=== PATIENT | female | born 1975 | race Caucasian/White ===

== ENCOUNTER 2018-05-18 15:06 | Emergency (ER) | payer OTHER ==
[2018-05-18 16:02] LABS: Absolute Lymphocytes (CBC) 1.2 K/uL (0.7-4.9); Absolute Monocytes 0.6 K/uL (0.1-1.3); Absolute Neutrophil 2.6 K/uL (1.8-8.0); Basophils % 0.2 % (0-1.3); Eosinophils % 0.1 % (0-4.4); Hematocrit 44.5 % (36.0-45.0); Lymphocytes % 27.1 % (15.3-44.8); MCV 90.8 fL (80-100); MPV 8.1 fL (7.6-11.3); Monocytes % 13.6 % (3.3-12.3)
[2018-05-18 16:09] LABS: Protime INR 1.03
[2018-05-18] MEDS ORDERED: HALOPERIDOL LACT 5 MG/ML INJ ONE (16:37)
[2018-05-18] MEDS ORDERED: DIPHENHYDRAMINE 50 MG/ML VIAL ONE (16:37)
[2018-05-18 16:41] LABS: ALT/SGPT 31 U/L (12-78); AST/SGOT 23 U/L (15-37); Albumin 3.5 g/dL (3.4-5.0); Alkaline Phosphatase 87 U/L (45-117); BUN Blood Urea Nitrogen 6 mg/dL (7-18); Bicarbonate 27 mmol/L (21-32); Bilirubin Direct 0.2 mg/dL (0-0.2); Bilirubin Total 0.7 mg/dL (0.2-1.0); Glucose Level 97 mg/dL (74-106); Potassium 3.8 mmol/L (3.5-5.1); Protein, Total 7.5 g/dL (6.4-8.2); Sodium Level 144 mmol/L (136-145)
[2018-05-18 16:43] LABS: Alcohol Serum/Plasma < 3 mg/dL (<3)
[2018-05-18 17:06] LABS: Barbiturates NEGATIVE (NEGATIVE); Benzodiazepines NEGATIVE (NEGATIVE); Cocaine NEGATIVE (NEGATIVE); METHAMPHETAM NEGATIVE (NEGATIVE); Methadone NEGATIVE (NEGATIVE); Opiates NEGATIVE (NEGATIVE); Phencyclidine NEGATIVE (NEGATIVE); THC Cannibis NEGATIVE (NEGATIVE)
--- NOTE | 2018-05-18 17:49 | EDPHYS ---
Physician Documentation [facility] Name: Vickie Diop Age: 43 yrs Sex: Female : 1975 Arrival Date: 05/18/2018 Time: 15:09 Bed 5 Private MD: ED Physician Sly Suarez HPI: 05/18 16:54 This 43 yrs old Female presents to ER via Wheelchair with complaints of Psych jr8 Problem. 16:54 The patient presents to the emergency department with psychosis, has experienced jr8 auditory hallucinations, has delusions. Onset: The symptoms/episode began/occurred gradually, 1 month(s) ago. Associated signs and symptoms: The patient has no apparent associated signs or symptoms. Severity of symptoms: At their worst the symptoms were moderate in the emergency department the symptoms are unchanged. The patient has experienced similar episodes in the past, a few times. The patient has not recently seen a physician. Father of patient stated that patient is from [place]. Had been fine for quite some time while she had been on her psychiatric medications. Stated that she got off of them about a month ago because she thinks she does not need them. Since then has had auditory hallucinations and delusions. Stated that she flew down to [place] where they use to live and made her way down to [place] where she was arrested for recklessly driving a vehicle. Had been in snf for approximately 3 weeks until father had [place] police put out an APB on her to because she was missing and had not heard from her. Brought her to hospital here to see if we can stabilize her and get her treatment before taking her back home . Historical: - Allergies: 16:21 No Known Allergies; sv - Home Meds: 16:21 [place] Carbonate Oral [Active]; envega [Active]; sv - PMHx: 16:21 psychiatric hx; sv - PSHx: 16:21 None; sv - Immunization history:: Adult Immunizations unknown. - Social history:: Smoking status: unknown. - Ebola Screening: : Unable to complete screening because patient does not understand. ROS: 16:54 Eyes: Negative for injury, pain, redness, and discharge, ENT: Negative for injury, jr8 pain, and discharge, Neck: Negative for injury, pain, and swelling, Cardiovascular: Negative for chest pain, palpitations, and edema, Respiratory: Negative for shortness of breath, cough, wheezing, and pleuritic chest pain, Abdomen/GI: Negative for abdominal pain, nausea, vomiting, diarrhea, and constipation, Back: Negative for injury and pain, MS/Extremity: Negative for injury and deformity, Skin: Negative for injury, rash, and discoloration, Neuro: Negative for headache, weakness, numbness, tingling, and seizure. 16:54 Psych: Positive for auditory hallucinations. Exam: 16:54 Head/Face: Normocephalic, atraumatic. Eyes: Pupils equal round and reactive to light, jr8 extra-ocular motions intact. Lids and lashes normal. Conjunctiva and sclera are non-icteric and not injected. Cornea within normal limits. Periorbital areas with no swelling, redness, or edema. ENT: Nares patent. No nasal discharge, no septal abnormalities noted. Tympanic membranes are normal and external auditory canals are clear. Oropharynx with no redness, swelling, or masses, exudates, or evidence of obstruction, uvula midline. Mucous membranes moist. Neck: Trachea midline, no thyromegaly or masses palpated, and no cervical lymphadenopathy. Supple, full range of motion without nuchal rigidity, or vertebral point tenderness. No Meningismus. Cardiovascular: Regular rate and rhythm with a normal S1 and S2. No gallops, murmurs, or rubs. Normal PMI, no JVD. No pulse deficits. Respiratory: Lungs have equal breath sounds bilaterally, clear to auscultation and percussion. No rales, rhonchi or wheezes noted. No increased work of breathing, no retractions or nasal flaring. Abdomen/GI: Soft, non-tender, with normal bowel sounds. No distension or tympany. No guarding or rebound. No evidence of tenderness throughout. Back: No spinal tenderness. No costovertebral tenderness. Full range of motion. Skin: Warm, dry with normal turgor. Normal color with no rashes, no lesions, and no evidence of cellulitis. MS/ Extremity: Pulses equal, no cyanosis. Neurovascular intact. Full, normal range of motion. Neuro: Awake and alert, GCS 15, oriented to person, place, time, and situation. Cranial nerves II-XII grossly intact. Motor strength 5/5 in all extremities. Sensory grossly intact. Cerebellar exam normal. Normal gait. 16:54 Psych: Behavior/mood is delirious, Affect is animated, Oriented to person, place, Not oriented to time, Patient has no thoughts/intents to harm self or others. Judgement / Insight is impaired. Recent memory is impaired. Remote memory is impaired. Delusions/hallucinations are present and described as Keeps talking about a non existing that she has and asking him questions . Vital Signs: 15:30 BP 125 / 89; Pulse 61; Resp 18; Temp 98.5; Pulse Ox 99% ; Pain 0/10; sv 15:45 Weight 53.07 kg (R); Height 5 ft. 5 in. (165.10 cm) (R); sg 16:33 BP 121 / 89; Pulse 86; Resp 16; Pulse Ox 99% ; sv 15:45 Body Mass Index 19.47 (53.07 kg, 165.10 cm) sg MDM: 15:33 Patient medically screened. jr8 17:48 Data reviewed: vital signs, nurses notes, lab test result(s). Data interpreted: Pulse jr8 oximetry: on room air is 99 %. Interpretation: normal. Counseling: I had a detailed discussion with the patient and/or guardian regarding: the historical points, exam findings, and any diagnostic results supporting the discharge/admit diagnosis, lab results, the need to transfer to another facility, [facility] does not immediately have the required specialist. 05/18 15:33 Order name: Acetaminophen; Complete Time: 17:00 05/18 15:33 Order name: Basic Metabolic Panel; Complete Time: 17:00 05/18 15:33 Order name: CBC with Diff; Complete Time: 16:27 05/18 15:33 Order name: ETOH Level; Complete Time: 17:00 05/18 15:33 Order name: Hepatic Function; Complete Time: 17:00 05/18 15:33 Order name: PT-INR; Complete Time: 16:27 05/18 15:33 Order name: Ptt, Activated; Complete Time: 16:27 05/18 15:33 Order name: Salicylate [facility] 05/18 15:33 Order name: Urine Drug Screen; Complete Time: 17:07 05/18 15:55 Order name: LAB Add On sv 05/18 16:08 Order name: [place] EDMS 05/18 17:19 Order name: Urine Dipstick--Ancillary (enter results) [facility] 05/18 17:19 Order name: Urine --Ancillary (enter results) [facility] 05/18 15:33 Order name: EKG; Complete Time: 15:34 [facility] 05/18 15:33 Order name: EKG - Nurse/Tech; Complete Time: 16:14 [facility] 05/18 15:33 Order name: IV Saline Lock; Complete Time: 15:53 [facility] 05/18 15:33 Order name: Labs collected and sent; Complete Time: 15:53 [facility] 05/18 15:33 Order name: Urine Dipstick-Ancillary (obtain specimen); Complete Time: 16:52 [facility] 05/18 17:52 Order name: Diet Regular; Complete Time: 17:53 sg Administered Medications: 16:48 Drug: Benadryl 50 mg Route: IVP; Site: left forearm; sv 16:50 Drug: HALdol 5 mg Route: IVP; Site: left forearm; sv Disposition: 18:23 Co-signature as Attending Physician, Sly Suarez MD I agree with the assessment and kdr plan of care. Disposition: 05/18/18 17:49 Transfer ordered to Psych Facility. Diagnosis is Psychotic disorder with hallucinations due to known physiological condition. - Reason for transfer: Higher level of care. - Accepting physician is Dr. Mack. - Condition is Fair. - Problem is new. - Symptoms are unchanged. Signatures: Dispatcher [employer] Miguelina Quezada RN RN sv Rittger, Kevin, MD MD kdr Solis, Maria ms Roszak, Josh, PA PA jr8 Corrections: (The following items were deleted from the chart) 18:24 17:49 05/18/2018 17:49 Transfer ordered to Psych Facility. Diagnosis is Psychotic kdr disorder with hallucinations due to known physiological condition. Reason for transfer: Higher level of care. Accepting physician is Psych. Condition is Fair. Problem is new. Symptoms are unchanged. jr8 19:06 18:24 05/18/2018 17:49 Transfer ordered to Psych Facility. Diagnosis is Psychotic ms disorder with hallucinations due to known physiological condition. Reason for transfer: Higher level of care. Accepting physician is Dr. Mack. Condition is Fair. Problem is new. Symptoms are unchanged. kdr
--- NOTE | 2018-05-18 17:49 | ER ---
Nurse's Notes [facility] Name: Vickie Diop Age: 43 yrs Sex: Female : 1975 Arrival Date: 05/18/2018 Time: 15:09 Bed 5 Private MD: Diagnosis: Psychotic disorder with hallucinations due to known physiological condition Presentation: 05/18 15:16 Presenting complaint: Father states: pt is from [place], [place], she decided about 4 weeks sv ago to take an airplane to [place], [place], then rented a car and started driving down here to [place], [place]. Pt was stopped by police for wreckless driving and placed in [facility]. Pt has been in [facility] for about 3 weeks and has not been taking her psychotic medications. Pt's father came from [place] to get her out of [facility] and has "been off her rocker" since Wednesday. Father wants her to get some help. Pt states she hears 1 voice in her head that is her , Andre. Pt does not have a . Pt states that she sees him in her head sometimes. 15:16 Method Of Arrival: Wheelchair sv 15:16 Acuity: MARCO A 2 sv 15:17 Transition of care: patient was not received from another setting of care. Onset of sv symptoms is unknown. Risk Assessment: Do you want to hurt yourself or someone else? Patient reports no desire to harm self or others. Initial Sepsis Screen: Does the patient meet any 2 criteria? No. Patient's initial sepsis screen is negative. Does the patient have a suspected source of infection? No. Patient's initial sepsis screen is negative. Care prior to arrival: None. Triage Assessment: 15:20 General: Appears in no apparent distress. comfortable, slender, Behavior is sv cooperative, fast speech, speaking to Andre who is an auditory hallucination.. Pain: Denies pain. EENT: No signs and/or symptoms were reported regarding the EENT system. Neuro: Level of Consciousness is awake, alert, obeys commands, Oriented to person, Moves all extremities. Gait is steady, Speech is normal. Cardiovascular: Patient's skin is warm and dry. Respiratory: Respiratory effort is even, unlabored, Respiratory pattern is regular, symmetrical. GI: No signs and/or symptoms were reported involving the gastrointestinal system. : No signs and/or symptoms were reported regarding the genitourinary system. Derm: Skin is pink, warm \\T\\ dry. Musculoskeletal: No signs and/or symptoms reported regarding the musculoskeletal system. Historical: - Allergies: 16:21 No Known Allergies; sv - Home Meds: 16:21 [place] Carbonate Oral [Active]; envega [Active]; sv - PMHx: 16:21 psychiatric hx; sv - PSHx: 16:21 None; sv - Immunization history:: Adult Immunizations unknown. - Social history:: Smoking status: unknown. - Ebola Screening: : Unable to complete screening because patient does not understand. Screenin:30 Abuse screen: Denies threats or abuse. Denies injuries from another. Nutritional sv screening: No deficits noted. Tuberculosis screening: No symptoms or risk factors identified. Fall Risk No fall in past 12 months (0 pts). No secondary diagnosis (0 pts). IV access (20 points). Ambulatory Aid- None/Bed Rest/Nurse Assist (0 pts). Gait- Normal/Bed Rest/Wheelchair (0 pts) Mental Status- Overestimates/Forgets Limitations (15 pts.). Total Seg[place]ia Fall Scale indicates Low Risk Score (25-44 pts). Fall prevention measures have been instituted. Side Rails Up X 2 Placed close to Nursing Station 1:1 attendant Assigned to Pt. Frequent Obs/Assesments occuring As available Patient and Family Educated on Fall Prevention Program and strategies. Assessment: 15:45 Reassessment: Pt is having flight of ideas, rambling and excited. Pt continues to speak sv to Andre. Pt has inappropriate replies to questions from staff. 16:35 Reassessment: Patient appears in no apparent distress at this time. No changes from sv previously documented assessment. Patient and/or family updated on plan of care and expected duration. Pain level reassessed. 17:43 Reassessment: Patient appears in no apparent distress at this time. No changes from sg previously documented assessment. pt laying on ER stretcher, eyes closed, resp even and unlabored, srx2, the bed is in low and locked position, will continue to monitor. 18:00 Reassessment: report given to Juliocesar OLU with [facility], awaiting administrative approval at this time. 18:09 Reassessment: Reassessment: report given to Tristen LOU with [facility], awaiting sg administrative approval at this time. 18:13 Reassessment: report given to Sara LOU with [facility], awaiting administrative sg approval at this time. Reassessment: to give report to for pt report, awaiting administrative approval. 18:22 Reassessment: Administrative approval received from [facility], awaiting sg transport at this time. Psych: 15:20 Subjective: Patient's mood is elevated, Delusions are denied, Hallucinations are sv auditory, visual. Objective: Patient is cooperative, guarded, using poor eye contact, Speech is loud, rapid, Affect is flat, inappropriate. Interventions: Patient placed in hospital gown. Patient reassessed during use of restraints. Patient is physically safe. Patient's cardiac status is stable. Patient's respirations are even and unlabored. Patient has good circulation in all extremities as indicated by capillary refill < 3 seconds. Patient's ROM assessed and is intact. Patient nutrition and hydration needs will continue to be monitored and addressed. Patient hygiene and elimination needs met. Patient assessed for signs of distress. Patient remains reasonably comfortable at this time. Assisted patient in de-escalation of behavior by removing stimuli causing behavior where possible. Commitment: Patient will be a voluntary commitment. 15:20 Safety Checks: Personal items have been removed. Door is open. Visitors are present. sv 16:34 Suicide Risk Assessment: Sad Person Scale: Sex of patient: Female: Score 0 points. Age sv of patient: Score 0 point if patient falls outside of specified age parameters. Depression: Score 0 point if signs of depression are not present. Previous Attempt: Score 1 point if patient has previously attempted suicide. Substance Abuse: Score 0 point if patient does not abuse alcohol or drugs. Rational Thinking: Score 1 point if patient is lacking rational thinking. Social Support: Score 0 if social support is present/available. Organized Plan: Score 0 if patient did not have an organized plan in place. Relationship: Score 1 point if patient is , , , or for a single male Chronic Sickness: Score 1 point if patient has illness, chronic, debilitating, or severe. TOTAL POINTS: If total points are 3-4, proposed clinical action is close follow-up/consider hospitalization. Pt denies substance abuse. Vital Signs: 15:30 BP 125 / 89; Pulse 61; Resp 18; Temp 98.5; Pulse Ox 99% ; Pain 0/10; sv 15:45 Weight 53.07 kg (R); Height 5 ft. 5 in. (165.10 cm) (R); sg 16:33 BP 121 / 89; Pulse 86; Resp 16; Pulse Ox 99% ; sv 15:45 Body Mass Index 19.47 (53.07 kg, 165.10 cm) ED Course: 15:09 Patient arrived in ED. rg4 15:20 Patient has correct armband on for positive identification. Placed in gown. Bed in low sv position. Side rails up X2. Pulse ox on. NIBP on. Head of bed elevated. 15:30 Arm band placed on right wrist. sv 15:33 Tristen Sinclair PA is PHCP. jr8 15:33 Sly Suarez MD is Attending Physician. jr8 15:33 Patients father Zachariah Diop left his phone number [phone] for us to call and keep eb him updated with plan of care once medically cleared. 15:35 Safety Checks: Personal items have been removed. The door is open or patient has been sv placed in a hallway bed/chair. A family member and/or friend is present and encouraged to stay. Sitter present at this time. 15:45 Initial lab(s) drawn, by me, sent to lab. Inserted saline lock: 22 gauge in left sv forearm, using aseptic technique. ,using aseptic technique. diffusics Blood collected. Flushed left forearm with 5 ml normal saline. 15:50 Safety Checks: Personal items have been removed. The door is open or patient has been sv placed in a hallway bed/chair. There are no family/friend visitors at this time Sitter present at this time. 15:52 Miguelina Dowd, DASHA is Primary Nurse. sv 16:05 Safety Checks: Personal items have been removed. The door is open or patient has been sv placed in a hallway bed/chair. There are no family/friend visitors at this time Sitter present at this time. 16:20 Triage completed. sv 16:20 Safety Checks: Personal items have been removed. The door is open or patient has been sv placed in a hallway bed/chair. There are no family/friend visitors at this time Sitter present at this time. 16:33 EKG done, by school bus technician. reviewed by Tristen OCHOA. dt2 16:35 Safety Checks: Personal items have been removed. The door is open or patient has been sv placed in a hallway bed/chair. There are no family/friend visitors at this time Sitter present at this time. 16:36 LAB Add On Sent. sv 16:50 Safety Checks: Personal items have been removed. The door is open or patient has been sv placed in a hallway bed/chair. There are no family/friend visitors at this time Sitter present at this time. 16:51 Urine collected: straight cath specimen, cloudy, by [employer]. dh3 17:04 Report given to Luis LOU. sv 17:06 Primary Nurse role handed off by Miguelina Dowd RN 17:17 called and spoke with Karen at [facility] to initiate transfer, She asked eb that i fax over clinical's but that at this time they have no beds available for our patient. 17:26 faxed patient records to the following facilities intake department in the attempt to eb find placement : [facility], [facility], [facility], [facility], [facility], [facility], [facility], [facility], [facility], [facility], [facility], [facility], and [facility] . 17:43 Luis Hendrickson, RN is Primary Nurse. sg 17:50 Resting quietly. transfer approval from receiving facility. sg 17:53 [facility] called to do nurse to nurse on a potential transfer. eb 18:07 Tristen from [facility] contacted for [id number]. mb4 18:08 Sara from [facility] contacted for [id number]. mb4 18:18 Beatriz from [facility] contacted for [id number]. mb4 18:20 Dr. Suarez called [phone] Mack from [facility] for consultation for patient transfer. Administered Medications: 16:48 Drug: Benadryl 50 mg Route: IVP; Site: left forearm; sv 16:50 Drug: HALdol 5 mg Route: IVP; Site: left forearm; sv Outcome: 17:49 ER care complete, transfer ordered by MD. smith 19:06 Patient left the ED. ms Signatures: Miguelina Dowd RN RN Luis Hendrickson RN RN Mimi Mark ms Carolyn, DASHA Jacobo RN Tristen Sinclair PA PA jr8 Garcia, Rubi 4 Tricia Woodson 3 Doreen Grady Danielle 2 Ann Bass 4 Corrections: (The following items were deleted from the chart) 18:18 18:09 Reassessment: [facility] 18:30 18:09 Reassessment: jose d
[2018-05-18 18:22] LABS: Lithium < 0.2 mmol/L (0.6-1.2); Salicylates Level < 1.7 mg/dL (2.8-20)
[2018-05-18 19:07] LABS: Urine Blood NEGATIVE (NEG); Urine Glucose NEGATIVE (NEG); Urine Protein NEGATIVE (NEG); Urine pH 7.5 (5.0-7.0)
--- NOTE | 2018-05-19 09:04 | EKG ---
Test Date: 2018-05-18 Test Time: 15:56:50 Event Staff: MEASUREMENT RESULTS: Intervals: Rate: 84 WI: 122 QRSD: 70 QT: 336 QTc: 397 [place]: P: 33 WI: 122 QRS: 28 T: 61 INTERPRETIVE STATEMENTS: Normal sinus rhythm Septal infarct, age undetermined Abnormal ECG No previous ECG available for comparison Electronically Signed On 05-19-18 09:03:33 CDT by Poli Nath
== END 2018-05-18 19:06 ==
LOC: ER 15:06
DX: F06.0 Psychotic disorder with hallucinations due to known physiological condition (principal)
CPT/HCPCS: 36415; 80048; 80076; 80178; 80307 ×8; 80320; 80329 ×2; 81003; 81025; 85025; 85610; 85730; 93005; J1630; 96374; 96375; 99285